=== PATIENT | male | born 1975 | race Hispanic/Latino ===

== ENCOUNTER 2018-06-17 18:24 | Emergency (ER) | payer SELFPAY ==
[2018-06-17 19:02] LABS: Absolute Lymphocytes (CBC) 2.6 K/uL (0.7-4.9); Absolute Monocytes 0.9 K/uL (0.1-1.3); Absolute Neutrophil 8.6 K/uL (1.8-8.0); Basophils % 0.8 % (0-1.3); Eosinophils % 1.3 % (0-4.4); Hematocrit 45.8 % (39.6-49.0); Lymphocytes % 20.8 % (15.3-44.8); MPV 9.7 fL (7.6-11.3); Monocytes % 7.6 % (3.3-12.3); Protime INR 1.08; RBC Red Blood Cell Count 4.88 M/uL (4.33-5.43)
[2018-06-17 19:15] LABS: ALT/SGPT 37 U/L (12-78); AST/SGOT 17 U/L (15-37); Albumin 3.8 g/dL (3.4-5.0); Alkaline Phosphatase 83 U/L (45-117); BUN Blood Urea Nitrogen 20 mg/dL (7-18); Bicarbonate 31 mmol/L (21-32); Bilirubin Direct 0.2 mg/dL (0-0.2); Bilirubin Total 0.8 mg/dL (0.2-1.0); Glucose Level 116 mg/dL (74-106); Magnesium 2.3 mg/dL (1.8-2.4); NT PRO-BNP 13 pg/mL (<125); Potassium 3.5 mmol/L (3.5-5.1); Protein, Total 7.2 g/dL (6.4-8.2); Sodium Level 138 mmol/L (136-145); Troponin (Emerg Dept Use Only) < 0.02 ng/mL (0.0-0.045)
--- NOTE | 2018-06-17 19:15 | RAD REPORT ---
EXAM DESCRIPTION: Kay Single View06/17/2018 7:01 pm CLINICAL HISTORY: Chest pain COMPARISON: 2008 FINDINGS: The lungs appear clear of acute infiltrate. The heart is normal size IMPRESSION: No acute abnormalities displayed
[2018-06-17] MEDS ORDERED: FAMOTIDINE 20 MG/2 ML VIAL IV ONE (19:54)
--- NOTE | 2018-06-17 20:42 | ER ---
Nurse's Notes [facility] Name: Craig Kwon Age: 42 yrs Sex: Male : 1975 Arrival Date: 06/17/2018 Time: 18:25 Bed 30 Private MD: Diagnosis: Chest pain, unspecified Presentation: 06/17 18:31 Presenting complaint: Sister reports that the pt has complained of headache and high sg blood pressure x1 day, reports chest pain for the last 2 days with worsening pain today, pt reports having had alcohol about 2 days ago but only drinks on occasion and has not had anything to drink today, reports palpitations and pounding heart beats. Transition of care: patient was not received from another setting of care. Onset of symptoms was June 15, 2018. Risk Assessment: Do you want to hurt yourself or someone else? Patient reports no desire to harm self or others. Initial Sepsis Screen: Does the patient meet any 2 criteria? No. Patient's initial sepsis screen is negative. Does the patient have a suspected source of infection? No. Patient's initial sepsis screen is negative. Care prior to arrival: None. 18:31 Method Of Arrival: Ambulatory sg 18:31 Acuity: MARILEE 3 sg Historical: - Allergies: 18:34 No Known Allergies; sg - Home Meds: 18:34 Daily Multivitamin oral oral [Active]; sg - PMHx: 18:34 None; sg - PSHx: 18:34 None; sg - Immunization history:: Adult Immunizations up to date. - Social history:: Smoking status: Patient/guardian denies using tobacco, Patient uses alcohol, occasionally. - Ebola Screening: : Patient negative for fever greater than or equal to 101.5 degrees Fahrenheit, and additional compatible Ebola Virus Disease symptoms Patient denies exposure to infectious person Patient denies travel to an Ebola-affected area in the 21 days before illness onset No symptoms or risks identified at this time. Screenin:50 Abuse screen: Denies threats or abuse. Nutritional screening: No deficits noted. la1 Tuberculosis screening: No symptoms or risk factors identified. Fall Risk None identified. Assessment: 18:49 General: Appears in no apparent distress. Behavior is calm, cooperative. Pain: la1 Complains of pain in chest Pain does not radiate. Pain currently is 10 out of 10 on a pain scale. Quality of pain is described as pressure, Pain began 2-3 days ago. Neuro: Level of Consciousness is awake, alert, obeys commands, Oriented to person, place, time, situation. Cardiovascular: Heart tones S1 S2 present Rhythm is sinus rhythm. Respiratory: Airway is patent Trachea midline Respiratory effort is even, unlabored, Respiratory pattern is regular, symmetrical, Breath sounds are clear bilaterally. GI: No signs and/or symptoms were reported involving the gastrointestinal system. : No signs and/or symptoms were reported regarding the genitourinary system. 20:00 Reassessment: Patient appears in no apparent distress at this time. No changes from la1 previously documented assessment. Patient and/or family updated on plan of care and expected duration. Pain level reassessed. Patient is alert, oriented x 3, equal unlabored respirations, skin warm/dry/pink. 21:09 Reassessment: Patient appears in no apparent distress at this time. No changes from la1 previously documented assessment. Patient and/or family updated on plan of care and expected duration. Pain level reassessed. Patient is alert, oriented x 3, equal unlabored respirations, skin warm/dry/pink. Patient states symptoms have improved. Vital Signs: 18:49 BP 158 / 102; Pulse 78; Resp 18; Temp 99.5(O); Pulse Ox 98% on R/A; la1 19:46 BP 148 / 98; Pulse 75; Resp 18; Pulse Ox 98% on R/A; la1 20:15 BP 122 / 80; Pulse 83; Pulse Ox 99% ; jp3 ED Course: 18:25 Patient arrived in ED. as 18:33 Triage completed. sg 18:33 Kevin Walters NP is PHCP. pm1 18:33 Juan Raymond MD is Attending Physician. pm1 18:33 Arm band placed on. sg 18:49 Gabriel Bey, IZZY is Primary Nurse. la1 18:50 Bed in low position. Call light in reach. Side rails up X 1. media monitor on. Pulse la1 ox on. NIBP on. 18:50 Inserted saline lock: 20 gauge in right antecubital area, using aseptic technique. la1 Blood collected. Patient maintains SpO2 saturation greater than 95% on room air. 19:01 XRAY Chest (1 view) In Process Unspecified. EDMS 21:08 No provider procedures requiring assistance completed. IV discontinued, intact, la1 bleeding controlled, No redness/swelling at site. Pressure dressing applied. Administered Medications: 19:46 Drug: Pepcid 20 mg Route: IVP; Site: right antecubital; la1 20:48 Follow up: Response: No adverse reaction la1 20:55 Drug: GI Cocktail without - (Maalox Suspension 30 ml, Lidocaine Liquid 2 % 15 la1 ml) Route: PO; 21:09 Follow up: Response: No adverse reaction la1 Outcome: 20:41 Discharge ordered by MD. pm1 21:09 Discharged to home ambulatory. la1 21:09 Condition: stable 21:09 Discharge instructions given to patient, Instructed on discharge instructions, follow up and referral plans. medication usage, Demonstrated understanding of instructions, follow-up care, medications, Prescriptions given X 1. 21:09 Patient left the ED. la1 Signatures: Dispatcher [employer] EDMS Jermaine Lewis RN RN sg Martinez, Amelia as Attema, Lee, RN RN la1 Kevin Walters NP EXECUTIVE VICE PRESIDENT AND CHIEF FINANCIAL OFFICER pm1 Mele Wilkerson jp3
--- NOTE | 2018-06-17 20:42 | EDPHYS ---
Physician Documentation [facility] Name: Craig Kwon Age: 42 yrs Sex: Male : 1975 Arrival Date: 06/17/2018 Time: 18:25 Bed 30 Private MD: ED Physician Juan Raymond HPI: 06/17 20:00 This 42 yrs old Male presents to ER via Ambulatory with complaints of Chest pm1 Pain. 20:00 The patient or guardian reports chest pain that is located primarily in the mid-sternal pm1 area. Onset: 2 day(s) ago. The pain does not radiate. Associated signs and symptoms: Pertinent negatives: abdominal pain, cough, diaphoresis, dizziness, headache, nausea, shortness of breath, vomiting. The chest pain is described as burning. Duration: The patient or guardian reports a single episode. Modifying factors: The symptoms are alleviated by nothing. the symptoms are aggravated by eating, swallowing, lying down. history of reflux disease. The patient has not recently seen a physician. Historical: - Allergies: 18:34 No Known Allergies; sg - Home Meds: 18:34 Daily Multivitamin oral oral [Active]; sg - PMHx: 18:34 None; sg - PSHx: 18:34 None; sg - Immunization history:: Adult Immunizations up to date. - Social history:: Smoking status: Patient/guardian denies using tobacco, Patient uses alcohol, occasionally. - Ebola Screening: : Patient negative for fever greater than or equal to 101.5 degrees Fahrenheit, and additional compatible Ebola Virus Disease symptoms Patient denies exposure to infectious person Patient denies travel to an Ebola-affected area in the 21 days before illness onset No symptoms or risks identified at this time. ROS: 20:00 Constitutional: Negative for fever, chills, and weight loss, Eyes: Negative for injury, pm1 pain, redness, and discharge, ENT: Negative for injury, pain, and discharge, Neck: Negative for injury, pain, and swelling, Respiratory: Negative for shortness of breath, cough, wheezing, and pleuritic chest pain. 20:00 Abdomen/GI: Negative for abdominal pain, nausea, vomiting, diarrhea, and constipation, Back: Negative for injury and pain, : Negative for injury, bleeding, discharge, and swelling, MS/Extremity: Negative for injury and deformity, Skin: Negative for injury, rash, and discoloration, Neuro: Negative for headache, weakness, numbness, tingling, and seizure. 20:00 Cardiovascular: Positive for chest pain, Negative for edema, orthopnea, palpitations. Exam: 20:00 Constitutional: This is a well developed, well nourished patient who is awake, alert, pm1 and in no acute distress. Head/Face: Normocephalic, atraumatic. Eyes: Pupils equal round and reactive to light, extra-ocular motions intact. Lids and lashes normal. Conjunctiva and sclera are non-icteric and not injected. Cornea within normal limits. Periorbital areas with no swelling, redness, or edema. ENT: Nares patent. No nasal discharge, no septal abnormalities noted. Tympanic membranes are normal and external auditory canals are clear. Oropharynx with no redness, swelling, or masses, exudates, or evidence of obstruction, uvula midline. Mucous membranes moist. Neck: Trachea midline, no thyromegaly or masses palpated, and no cervical lymphadenopathy. Supple, full range of motion without nuchal rigidity, or vertebral point tenderness. No Meningismus. Chest/axilla: Normal chest wall appearance and motion. Nontender with no deformity. No lesions are appreciated. Cardiovascular: Regular rate and rhythm with a normal S1 and S2. No gallops, murmurs, or rubs. Normal PMI, no JVD. No pulse deficits. Respiratory: Lungs have equal breath sounds bilaterally, clear to auscultation and percussion. No rales, rhonchi or wheezes noted. No increased work of breathing, no retractions or nasal flaring. Abdomen/GI: Soft, non-tender, with normal bowel sounds. No distension or tympany. No guarding or rebound. No evidence of tenderness throughout. Back: No spinal tenderness. No costovertebral tenderness. Full range of motion. Skin: Warm, dry with normal turgor. Normal color with no rashes, no lesions, and no evidence of cellulitis. MS/ Extremity: Pulses equal, no cyanosis. Neurovascular intact. Full, normal range of motion. 20:00 Neuro: Orientation: is normal, Motor: is normal, Gait: is steady, at a normal pace, without difficulty. Vital Signs: 18:49 BP 158 / 102; Pulse 78; Resp 18; Temp 99.5(O); Pulse Ox 98% on R/A; la1 19:46 BP 148 / 98; Pulse 75; Resp 18; Pulse Ox 98% on R/A; la1 20:15 BP 122 / 80; Pulse 83; Pulse Ox 99% ; jp3 MDM: 18:33 Patient medically screened. pm1 20:40 Data reviewed: vital signs. Data interpreted: Pulse oximetry: on room air is 98 %. pm1 Interpretation: normal. Counseling: I had a detailed discussion with the patient and/or guardian regarding: the historical points, exam findings, and any diagnostic results supporting the discharge/admit diagnosis, lab results, radiology results, the need for outpatient follow up, to return to the emergency department if symptoms worsen or persist or if there are any questions or concerns that arise at home. 06/17 18:33 Order name: Basic Metabolic Panel; Complete Time: 19:16 pm1 06/17 18:33 Order name: CBC with Diff; Complete Time: 19:07 pm1 06/17 18:33 Order name: LFT's; Complete Time: 19:16 pm1 06/17 18:33 Order name: Magnesium; Complete Time: 19:16 pm1 06/17 18:33 Order name: NT PRO-BNP; Complete Time: 19:16 pm1 06/17 18:33 Order name: PT-INR; Complete Time: 19:07 pm1 06/17 18:33 Order name: Troponin (emerg Dept Use Only); Complete Time: 19:16 pm1 06/17 18:33 Order name: XRAY Chest (1 view); Complete Time: 19:16 pm1 06/17 18:33 Order name: EKG; Complete Time: 18:35 pm1 06/17 18:33 Order name: Cardiac monitoring; Complete Time: 18:37 pm1 06/17 18:33 Order name: EKG - Nurse/Tech; Complete Time: 18:37 pm1 06/17 18:33 Order name: IV Saline Lock; Complete Time: 18:37 pm1 06/17 18:33 Order name: Labs collected and sent; Complete Time: 18:37 pm1 06/17 18:33 Order name: O2 Per Protocol; Complete Time: 18:37 pm1 06/17 18:33 Order name: O2 Sat Monitoring; Complete Time: 18:37 pm1 Administered Medications: 19:46 Drug: Pepcid 20 mg Route: IVP; Site: right antecubital; la1 20:48 Follow up: Response: No adverse reaction la1 20:55 Drug: GI Cocktail without - (Maalox Suspension 30 ml, Lidocaine Liquid 2 % 15 la1 ml) Route: PO; 21:09 Follow up: Response: No adverse reaction la1 Disposition: 06/17/18 20:41 Discharged to Home. Impression: Chest pain, unspecified. - Condition is Stable. - Discharge Instructions: Nonspecific Chest Pain. - Prescriptions for Pepcid 20 mg Oral Tablet - take 1 tablet by ORAL route every 12 hours for 10 days; 20 tablet. - Medication Reconciliation Form, Thank You Letter form. - Follow up: Emergency Department; When: As needed; Reason: Worsening of condition. Follow up: Private Physician; When: 2 - 3 days; Reason: Recheck today's complaints, Continuance of care, Re-evaluation by your physician. - Problem is new. - Symptoms have improved. Addendum: 06/20/2018 19:16 Co-signature as Attending Physician, Juan Raymond MD. r n Signatures: Dispatcher [employer] EDJermaine Beverly RN RN Juan Raymond MD MD rn Attema, Lee, RN RN la1 Kevin Walters NP [employer] pm1 Corrections: (The following items were deleted from the chart) 06/17 21:09 20:41 06/17/2018 20:41 Discharged to Home. Impression: Chest pain, unspecified. la1 Condition is Stable. Forms are Medication Reconciliation Form, Thank You Letter, Antibiotic Education, Prescription Opioid Use. Follow up: Emergency Department; When: As needed; Reason: Worsening of condition. Follow up: Private Physician; When: 2 - 3 days; Reason: Recheck today's complaints, Continuance of care, Re-evaluation by your physician. Problem is new. Symptoms have improved. pm1
[2018-06-17] MEDS ORDERED: LIDOCAINE VISCOUS 2% SOLN 15 ML UDC ONE (21:02)
[2018-06-17] MEDS ORDERED: MAGNE/ALUM HYDROXD 30 ML UCUP ONE (21:02)
--- NOTE | 2018-06-18 12:21 | EKG ---
Test Date: 2018-06-17 Test Time: 18:30:16 General Production Worker: [place] MEASUREMENT RESULTS: Intervals: Rate: 81 [place]: 142 QRSD: 104 QT: 390 QTc: 453 [place]: P: 25 [place]: 142 QRS: -44 T: 8 INTERPRETIVE STATEMENTS: Normal sinus rhythm Left axis deviation Pulmonary disease pattern Minimal voltage criteria for LVH, may be normal variant Abnormal ECG Compared to ECG 10/27/2009 00:10:06 Left-axis deviation now present Left ventricular hypertrophy now present Electronically Signed On 06-18-18 12:19:59 CDT by Cory Evans
== END 2018-06-17 21:09 | disposition home or self-care (01) ==
LOC: ER 18:24
DX: R07.9 Chest pain, unspecified (principal)
CPT/HCPCS: 36415; 71045; 80048; 80076; 83735; 83880; 84484; 85025; 85610; 93005; 96374; 99285